=== PATIENT | male | born 1950 | race Caucasian/White ===

== ENCOUNTER → 2017-04-12 | Outpatient (CLI) | payer OTHER | END | disposition home or self-care (01) | LOC: SHCH 11:30 | PROVIDERS: ATTEND Internal Medicine Cardiovascular Disease | DX: I51.7 Cardiomegaly (principal); I35.0 Nonrheumatic aortic (valve) stenosis | CPT/HCPCS: 93306 ==

== ENCOUNTER 2018-02-14 15:30 | Inpatient (IN) | payer OTHER ==
[~2018-02-14] VITALS: Ht 176.5 cm; Wt 83.4 kg
[2018-02-14 14:45] VITALS: BP 142/83
[2018-02-14] MEDS ORDERED: LISI30TA4 PO (16:02)
[2018-02-14] MEDS ORDERED: TRAZ-187 PO (16:02)
[2018-02-14] MEDS ORDERED: SIMV80TA7 PO (16:02)
[2018-02-14] MEDS ORDERED: TYL3 PO (16:02)
[2018-02-15] VITALS (25 sets, daily range): BP systolic 91–139; BP diastolic 57–91
[2018-02-15] MEDS: CEFAZOLIN SODIUM 1 GM VIAL IVP SCH ×4 (06:00→23:16)
[2018-02-15] MEDS ORDERED: LACTATED RINGERS 1000ML 1,000 ML IV ONE (06:34)
[2018-02-15] MEDS ORDERED: LIDOCAINE PF 2% 5ML ABBOJECT ONE (07:13)
[2018-02-15] MEDS ORDERED: SUCCINYLCHOLINE 200MG/10ML SYR ONE (07:13)
[2018-02-15] MEDS ORDERED: ONDANSETRON HCL 4 MG/2 ML VIAL ONE (07:13)
[2018-02-15] MEDS ORDERED: DEXAMETHASONE SOD PHOSPHATE 10MG/ML 1ML VIAL ONE (07:14)
[2018-02-15] MEDS ORDERED: PROPOFOL 10 MG/ML 20ML VIAL IV ONE ×2 (07:14→10:25)
[2018-02-15] MEDS ORDERED: MIDAZOLAM HCL 1 MG/ML 2ML VIAL ONE (07:14)
[2018-02-15] MEDS ORDERED: GLYCOPYRROLATE 1 MG/5 ML SYRINGE ONE (07:14)
[2018-02-15] MEDS ORDERED: NEOSTIGMINE 5MG/5ML SYR IV ONE (07:14)
[2018-02-15] MEDS ORDERED: LEVO25TA54 PO (07:14)
[2018-02-15] MEDS ORDERED: ROCURONIUM 10MG/1ML SYR 10 MG/ML ML ONE (07:15)
[2018-02-15] MEDS ORDERED: FENTANYL CITRATE PF 50 MCG/1 ML 2ML VIAL ONE (07:15)
[2018-02-15] MEDS ORDERED: BUPIVACAINE/EPI/PF 0.25% 30ML VIAL IJ ONE (07:46)
[2018-02-15] MEDS ORDERED: CEFAZOLIN SODIUM 1 GM VIAL ONE (07:46)
[2018-02-15] MEDS ORDERED: TRANEXAMIC ACID 1000MG/10ML IV ONE (07:46)
[2018-02-15] MEDS ORDERED: EPHEDRINE SULFATE 50 MG/ML AMPULE ONE (08:34)
[2018-02-15] MEDS ORDERED: FENTANYL CITRATE PF 50 MCG/1 ML 5ML AMP IV ONE (09:24)
[2018-02-15] MEDS ORDERED: FERROUS FUMARATE 324 MG TABLET PO PRN (10:30)
[2018-02-15] MEDS ORDERED: TRAMADOL HCL 50 MG TABLET PO PRN (10:30)
[2018-02-15] MEDS ORDERED: POTASSIUM CHLORIDE 10% ELIXIR 20 MEQ/15 ML UDCUP PO PRN (10:30)
[2018-02-15] MEDS ORDERED: DiphenhydrAMINE HCL 50 MG/ML VIAL IVP PRN (10:30)
[2018-02-15] MEDS ORDERED: OXYCODONE HCL 5 MG TAB PO PRN (10:30)
[2018-02-15] MEDS ORDERED: POTASSIUM CHLORIDE 20MEQ/100ML 100 ML IV PRN (10:30)
[2018-02-15] MEDS ORDERED: POTASSIUM CHLORIDE 20 MEQ ERTAB PO PRN (10:30)
[2018-02-15] MEDS ORDERED: LIDOCAINE HCL-MPF 1% 2ML VIAL IVP PRN (10:30)
[2018-02-15] MEDS ORDERED: CALCIUM CARBONATE 500 MG TABLET PO PRN (10:30)
[2018-02-15] MEDS: ACETAMINOPHEN EXTRA STRENGTH 500 MG TABLET PO SCH ×2 (10:30→18:49)
[2018-02-15] MEDS ORDERED: ONDANSETRON HCL 4 MG/2 ML VIAL IVP PRN (10:30)
[2018-02-15] MEDS ORDERED: TRAZODONE HCL 100 MG TABLET PO SCH (12:15)
[2018-02-15] MEDS ORDERED: TRAZODONE HCL 100 MG TABLET PO PRN (13:13)
[2018-02-15] MEDS ORDERED: ACETAMINOPHEN-CODEINE 300/30MG TAB PO PRN (13:15)
[2018-02-15] MEDS: SODIUM CHLORIDE 0.9% 1000ML 1,000 ML IV SCH ×2 (14:47→22:02)
[2018-02-15] MEDS: PREGABALIN 25 MG CAP PO SCH (20:07)
[2018-02-15] MEDS: OXYCODONE HCL 5 MG TAB PO PRN (20:07)
[2018-02-15] MEDS: CELECOXIB 200 MG CAP PO SCH (20:07)
[2018-02-15] MEDS: ASPIRIN 325 MG TABLET PO SCH (20:07)
[2018-02-15] MEDS: FAMOTIDINE 20MG TAB 20 MG TAB PO SCH (20:08)
[2018-02-15] MEDS: SIMVASTATIN 20 MG TABLET PO SCH (20:08)
[2018-02-15] MEDS: KETOROLAC TROMETHAMINE 15MG/ML IV PRN (23:21)
[2018-02-16] MEDS: SODIUM CHLORIDE 0.9% 1000ML 1,000 ML IV SCH (03:08)
[2018-02-16] MEDS: ACETAMINOPHEN EXTRA STRENGTH 500 MG TABLET PO SCH ×3 (03:08→18:09)
[2018-02-16 04:01] LABS: HEMATOCRIT 34.1 % (42-54); MEAN CORPUSCULAR HEMOGLOBIN 33.8 pg (27.0-33.0); MEAN CORPUSCULAR HGB CONC 34.6 g/dL (32.0-36.0); MEAN CORPUSCULAR VOLUME 97.8 fL (79-99); PLATELET COUNT (AUTO) 188 K/uL (130-400); RED BLOOD CELL COUNT(AUTO) 3.49 MIL/uL (4.50-6.20); RED CELL DISTRIBUTION WIDTH 13.6 % (11.0-15.5); WHITE BLOOD COUNT (AUTO) 9.7 K/uL (4.8-10.8)
[2018-02-16 04:22] LABS: CREATININE 1.4 mg/dL (0.5-1.5); POTASSIUM 4.3 mmol/L (3.5-5.1)
[2018-02-16 04:30] VITALS: BP 130/78
[2018-02-16] MEDS: LEVOTHYROXINE 25 MCG TABLET PO SCH (05:52)
[2018-02-16 07:36] VITALS: BP 124/74
[2018-02-16] MEDS: POLYETHYLENE GLYCOL 3350 17 GM POWD.PACK PO SCH (09:00)
[2018-02-16] MEDS: FAMOTIDINE 20MG TAB 20 MG TAB PO SCH ×2 (09:00→19:38)
[2018-02-16] MEDS: ASPIRIN 325 MG TABLET PO SCH ×2 (09:00→19:38)
[2018-02-16] MEDS: TAMSULOSIN HCL 0.4 MG CAP.ER.24H PO SCH (09:00)
[2018-02-16] MEDS: CELECOXIB 200 MG CAP PO SCH ×2 (09:00→19:38)
[2018-02-16] MEDS: PREGABALIN 25 MG CAP PO SCH ×2 (09:01→19:38)
[2018-02-16] MEDS: LISINOPRIL 20 MG TABLET PO SCH (09:01)
[2018-02-16] MEDS: OXYCODONE HCL 5 MG TAB PO PRN ×2 (10:25→15:50)
[2018-02-16 11:30] VITALS: BP 98/59
[2018-02-16 15:52] VITALS: BP 109/56
[2018-02-16] MEDS: SIMVASTATIN 20 MG TABLET PO SCH (19:38)
[2018-02-16 20:13] VITALS: BP 117/74
[2018-02-16 23:47] VITALS: BP 102/63
[2018-02-16] MEDS: KETOROLAC TROMETHAMINE 15MG/ML IV PRN (23:49)
[2018-02-17] MEDS: ACETAMINOPHEN EXTRA STRENGTH 500 MG TABLET PO SCH ×3 (01:11→18:11)
[2018-02-17 04:05] VITALS: BP 103/59
[2018-02-17] MEDS: LEVOTHYROXINE 25 MCG TABLET PO SCH (05:51)
[2018-02-17 08:14] VITALS: BP 90/56
[2018-02-17] MEDS: POLYETHYLENE GLYCOL 3350 17 GM POWD.PACK PO SCH (08:54)
[2018-02-17] MEDS: KETOROLAC TROMETHAMINE 15MG/ML IV PRN (08:54)
[2018-02-17] MEDS: TAMSULOSIN HCL 0.4 MG CAP.ER.24H PO SCH (08:56)
[2018-02-17] MEDS: FAMOTIDINE 20MG TAB 20 MG TAB PO SCH (08:56)
[2018-02-17] MEDS: ASPIRIN 325 MG TABLET PO SCH (08:56)
[2018-02-17] MEDS: PREGABALIN 25 MG CAP PO SCH (08:56)
[2018-02-17] MEDS: CELECOXIB 200 MG CAP PO SCH (08:56)
[2018-02-17] MEDS: LISINOPRIL 20 MG TABLET PO SCH (08:58)
[2018-02-17 11:41] VITALS: BP 108/64
[2018-02-17] MEDS ORDERED: HYDR-4457 PO (16:08)
[2018-02-17] MEDS ORDERED: ASPI-1012 PO (16:08)
[2018-02-18] MEDS ORDERED: BISACODYL 10 MG SUPP.RECT RC PRN (10:30)
== END 2018-02-17 18:35 | disposition home health service (06) | DRG 470 ==
LOC: EDSTATUS 15:30 → DAHIP 02-15 06:20 → 4AH 02-15 11:30
PROVIDERS: ADMIT Orthopaedic Surgery; ATTEND Orthopaedic Surgery
PROC: 0SRC0J9 Replacement of Right Knee Joint with Synthetic Substitute, Cemented, Open Approach (ICD-10-PCS; principal; 2018-02-15 09:10)
DX: M17.11 Unilateral primary osteoarthritis, right knee (principal); G89.29 Other chronic pain; I10 Essential (primary) hypertension; E78.5 Hyperlipidemia, unspecified; Z82.49 Family history of ischemic heart disease and other diseases of the circulatory system; Z79.899 Other long term (current) drug therapy; Z90.89 Acquired absence of other organs; Z98.42 Cataract extraction status, left eye; Z98.41 Cataract extraction status, right eye
CPT/HCPCS: 36415; 80048; 85027; 88305; 88311; A4218; J0330; J0690; J1100; J1885; J2001; J2250; J2405; J2704; J2710; J3010; J3490; J7030; J7120

== ENCOUNTER 2024-08-13 05:43 | Observation (INO) | payer OTHER ==
[2024-08-08 12:04] VITALS: BP 154/79; PULSE 60; RESP 18; TEMP 98.6
--- NOTE | 2024-08-08 12:23 | NUR ---
PREOP MAGDALENA RT INSTRUCTED ON INCENTIVE SPIROMETRY
[2024-08-13] VITALS (26 sets, daily range): BP systolic 76–153; BP diastolic 44–77; PULSE 50–72; RESP 14–20; TEMP 97.3–98.9; O2SAT 98
[~2024-08-13] VITALS: Ht 180.3 cm; Wt 77.3 kg
[~2024-08-13 05:43] MED LIST: SIMV80TA91 PO; TRAZ-187 PO
[2024-08-13] MEDS ORDERED: LACTATED RINGERS 1000ML IV SCH (06:00)
[2024-08-13] MEDS ORDERED: ketOROlac 30MG VIAL (30MG/ML) ONE (06:21)
[2024-08-13] MEDS ORDERED: ROPivacaine 0.5% 5MG/ML 30ML ONE ×2 (06:22→06:58)
[2024-08-13] MEDS: ceFAZolin SODIUM 2 GM VIAL ONE (06:34)
[2024-08-13] MEDS: LACTATED RINGERS 1000ML 1,000 ML IV ONE (06:35)
[2024-08-13] MEDS: 0.9%NACL 1000ML 1,000 ML IV SCH ×2 (06:36→07:30)
[2024-08-13] MEDS ORDERED: dexmedeTOMIDine HCL 200 MCG/2 ML VIAL IV ONE (06:58)
[2024-08-13] MEDS ORDERED: 0.9%NACL 10ML VIAL ONE ×3 (07:00)
[2024-08-13] MEDS ORDERED: phenylEPHRINE HCL 10 MG/ML 1ML VIAL IV ONE (07:01)
[2024-08-13] MEDS ORDERED: LIDOCAINE PF 100MG/5ML (2%) SYRINGE 5ML ONE (07:01)
[2024-08-13] MEDS ORDERED: proPOFol 10 MG/ML 20ML VIAL IV ONE (07:02)
[2024-08-13] MEDS ORDERED: MIDAZOLAM HCL 1 MG/ML 2ML VIAL ONE (07:02)
[2024-08-13] MEDS ORDERED: FENTanyl CITRate PF 50 MCG/1 ML 2ML VIAL ONE ×2 (07:02→09:38)
[2024-08-13] MEDS ORDERED: rocuRONium bROMide 10MG/1ML 5ML VL ONE (07:03)
[2024-08-13] MEDS ORDERED: FERROUS FUMARATE 324 MG TABLET PO PRN (07:30)
[2024-08-13] MEDS ORDERED: trAZOdone HCL 100 MG TABLET PO SCH (07:30)
[2024-08-13] MEDS ORDERED: CYCLOBENZAPRINE HCL 10 MG TABLET PO PRN (07:30)
[2024-08-13] MEDS ORDERED: HYDROcodone/APAP 5/325 1 TAB TABLET PO PRN ×2 (07:30→08:00)
[2024-08-13] MEDS ORDERED: CALCIUM CARB 500MG PO PRN (07:30)
[2024-08-13] MEDS ORDERED: PoTASSium chl 10% ELIXIR 20MEQ 20 MEQ/15 ML UDCUP PO PRN (07:30)
[2024-08-13] MEDS ORDERED: PoTASSium chloRIDE 20MEQ/100ML 100 ML IV PRN (07:30)
[2024-08-13] MEDS ORDERED: ondanSETRON 4MG INJ IVP PRN (07:30)
[2024-08-13] MEDS ORDERED: traMADol HCL 50 MG TABLET PO PRN (07:30)
[2024-08-13] MEDS ORDERED: PoTASSium chloRIDE 20MEQ ER 20 MEQ ERTAB PO PRN (07:30)
--- NOTE | 2024-08-13 07:32 | DS ---
Discharge Summary Hospital Course Summary: The patient was admitted to the hospital postoperatively on 08/13/2024 after undergoing left total knee arthroplasty. They did well with routine postoperative pain control. They worked well with physical therapy. They developed some acute blood loss anemia but remained asymptomatic. The hospital course was otherwise uncomplicated. They were subsequently able to be discharged on postoperative day [] once discharge arrangements were made with home health physical therapy. Full Stack Java Developer(s): None Procedure(s): Left total knee arthroplasty, 08/13/2024 Assessment/Plan: ASSESSMENT: Status post left total knee arthroplasty PLAN: See discharge instructions Discharge Instructions: Begin working with home health physical therapy. Dressing may be removed 08/15/2024 and left open to air. Showers ok allowing soap and water to run over the wound. Pat dry. Do not submerge wound in tub/pool. Do not apply ointments. Do not apply Betadine. Do not apply peroxide. Ice packs to decrease pain/swelling. Prescriptions have been sent to the pharmacy: *Dana 5/325mg 1-2 tab every 6 hours as needed for severe pain. (please call for refills) Cyclobenzaprine 5mg 1 tab every 8 hours as needed for muscle spasm pain. Gabapentin 100mg 1 tab every 8 hours (may discontinue if drowsy). Colace 100mg 1 tab orally twice a day as needed for constipation. Aspirin 325mg twice a day for 30 days to prevent blood clots. Call for a follow-up appointment in 2-3 weeks at [facility]. Home Medications: Reported Medications Trazodone HCl (Trazodone HCl) 100 Mg Tablet, 100 MG PO HSPRN, TAB 02/14/18 Simvastatin (Simvastatin) 80 Mg Tablet, 40 MG PO HS, TAB 02/14/18 Discontinued Reported Medications Levothyroxine Sodium (Levothyroxine Sodium) 25 Mcg Tablet, 25 MCG PO DAILY, TAB 02/15/18 Lisinopril (Lisinopril) 30 Mg Tablet, 30 MG PO DAILY, TAB 02/14/18 Discontinued Scripts Hydrocodone/Acetaminophen (Dana 5-325 Tablet) 1 Each Tablet, 1-2 EACH PO Q6HPRN PRN for PAIN, #90 TAB Prov:MICHELLE DE PAZ MD 02/17/18 Aspirin (ASPIRIN) 325 Mg Tablet, 325 MG PO DAILY, #30 TAB Prov:MICHELLE DE PAZ MD 02/17/18 ARLEEN MEYER MD August 13, 2024 07:32
[2024-08-13] MEDS ORDERED: ePHEDrine SULFate 50 MG/ML AMPULE ONE (07:40)
[2024-08-13] MEDS: TRANEXAMIC ACID 1000MG/10ML ONE (07:48)
[2024-08-13] MEDS: ketOROlac 30MG VIAL (30MG/ML) IJ ONE (08:21)
[2024-08-13] MEDS ORDERED: dexaMETHasone SOD PHOSPHATE 10MG/ML 1ML VIAL ONE (08:25)
[2024-08-13] MEDS ORDERED: ondanSETRON 4MG INJ ONE (08:25)
[2024-08-13] MEDS ORDERED: NEOSTIGMINE METHYLSULFATE 1MG/ML IV ONE (08:42)
[2024-08-13] MEDS ORDERED: GLYCOPYRROLATE 0.2 MG/ML 5 ML VIAL ONE (08:42)
[2024-08-13] MEDS: polyETHYLene GLYCol 3350 17 GM POWD.PACK PO SCH (09:00)
[2024-08-13] MEDS: GABApentin 100 MG CAPSULE PO SCH (09:00)
[2024-08-13] MEDS: doCUSate SODIUM 100 MG CAP PO SCH (09:00)
[2024-08-13] MEDS: TRANEXAMIC ACID 1000MG/10ML IV ONE (09:18)
--- NOTE | 2024-08-13 09:23 | OP ---
Operative Note: DATE OF PROCEDURE: 08/13/24 PREOPERATIVE DIAGNOSIS: Left knee osteoarthritis. POSTOPERATIVE DIAGNOSIS: Left knee osteoarthritis. PROCEDURE PERFORMED: Left knee total knee arthroplasty. SURGEON: Dyan Whitten MD CHILD CARE ASSOCIATE: Wagner Paloimno and Destiny Alejandro. ANESTHESIA: General with adductor canal block. ANESTHESIA: ZAHIRA Vaughan. ESTIMATED BLOOD LOSS: 50cc. COMPLICATIONS: None. DRAINS: None. SPECIMENS REMOVED: resected bone. Not sent to pathology. IMPLANTS: Vaughan [employer] Nephew Journey II BCS size 6 Oxinium femur, size 5 tibial base plate, 35 mm patella, 15 mm polyethylene STATEMENT OF MEDICAL NECESSITY: The patient is a 74-year-old male who suffers from left knee osteoarthritis failing conservative management. After discussion of the risks, benefits, and alternatives with the patient, they voluntarily agreed to undergo the aforementioned procedure. DESCRIPTION OF PROCEDURE: Patient was properly identified in the preoperative holding area. Surgical site marking was verified and surgery consent reviewed. The patient was then taken to the operating room and placed in supine position on the OR table. After induction of general anesthesia, preoperative antibiotics were given, all bony prominences were well-padded, and a well padded tourniquet was applied but not inflated at this time. The left lower extremity was then prepped and draped in usual sterile fashion. Surgical time out was done verifying correct surgery, side, site, and location to be performed. We then began the procedure by exsanguinating the limb using an Esmarch and inflating the tourniquet to 350 mmHg. At this point, we made an anterior midline incision using a 10 blade, coming down sharply the level of the fascia. Skin flaps were elevated medially and laterally. We then obtained a clean 10 blade and performed a standard medial parapatellar arthrotomy. We excised the infrapatellar fat pad. We performed our soft tissue releases off of the tibia. We transected the ACL and removed the anterior portion of the medial & lateral meniscus. We then brought the knee into hyperflexion with the patella everted. We used our entry reamer to enter the femoral canal. We then placed our intramedullary cutting guide for our distal femoral cutting block. We then performed our distal femoral osteotomy ensuring appropriate rotation and removed the bony wafer. We then removed these pins and block and then used jig 2 to size the distal femur with the after mentioned size found. We then placed our 5-in-1 cutting block in 4 degrees of external rotation and took our 5 cuts ensuring to protect the patellar tendon and the collateral ligaments. We then removed the cutting block and our bony fragments using a curved osteotome. We then placed our PCL retractor subluxating the tibia anteriorly. Using an extra medullary tibial cutting guide, we hung the block for our proximal tibial cut taking 2 mm off the more diseased portion. Prior to pinning this block in place, we ensured appropriate varus/valgus alignment and posterior slope similar to the [place] slope of the patient's knee. We then performed our proximal tibial osteotomy and removed the bony wafer using Bovie electrocautery to release any remaining soft tissue attachments. We then used our tibial sizing paddle and checked once more for varus & valgus alignment and found this to be cut in varus. We then placed the cutting block back on the anterior pins and used the drop alley to align this in a more neutral fashion. We then cross pinned it and we cutter tibial surface. We then checked once more for varus and valgus alignment and found this or appropriate. At this point, we pinned our tibial paddle in place. We then removed the PCL retractor and subluxated the tibia posteriorly while we placed our femoral trial component. We then finished preparing the notch with the reamer and box chisel. The notch portion of the trial femoral component was then placed. A posterior stabilized polyethylene, size 9 trial was placed. This was immediately increased up to a size 13 due to laxity with varus and valgus stressing. The knee was then taken through range of motion and found to have stable full range of motion. We then placed a bump under the ankle and everted the patella to perform our freehand cut of the undersurface the patella. We then sized our patella and reamed to the lug holes for this. We placed our trial patellar component and begin to take the knee through range of motion. The patella had lateral tracking so we performed a lateral release. At this point we began removing our trial components and punched the tibial keel prior to removing our tibial trial component. Final components were opened and cement was mixed on the back table while we injected local cocktail in the posterior capsule. We then thoroughly irrigated out the bone and dried the bony surfaces. We cemented our tibial component in place ensuring to remove excess cement and placed our trial polyethylene. We then cemented our femoral component in place once again taking time to ensure excess cement was removed leg was brought into full extension to help squeeze the excess cement from around the femoral component. We then brought the knee back in a flexion to remove this portion of the cement at this point we placed the ankle in a bump thoroughly irrigated off the patellar component and cemented our patellar component in standard fashion again removing excess cement. While we waited for the cement to cure, we thoroughly irrigated out the wound with normal saline. Once our cement had cured, we took the knee through a range of motion and found full and stable range of motion. We then elected to use the size 15 polyethylene and removed our trial polyethylene. We impacted our final polyethylene component in place in standard fashion and took the knee through a range of motion check once more. This was satisfactory so we began to repair the arthrotomy using #1 Vicryl in interrupted [id number] fashion. Subcutaneous tissue was repaired using 2-0 Vicryl. Running subcuticular 3-0 Monocryl stitch with Dermabond placed over this for the skin. We then applied a foam barrier dressing and a pressure dressing consisting of 4 x 4's fluffs and an Dylan wrap. The tourniquet was then deflated. Patient was awakened from ane sthesia, and they were taken to the recovery room in stable condition. DYAN WHITTEN MD August 13, 2024 09:23
[2024-08-13] MEDS: ketOROlac 15MG/ML VIAL (15MG/ML) IV SCH (09:53)
[2024-08-13] MEDS: GLYCOPYRROLATE 0.2 MG/ML 5 ML VIAL ONE (10:02)
[2024-08-13] MEDS: ketOROlac 15MG/ML VIAL (15MG/ML) ONE (10:21)
--- NOTE | 2024-08-13 10:24 | HMCIMG ---
Exam Type: KNEE/PATELLA 1-2VWS LT Clinical Information: S/P LEFT TKA SURGERY Comparison: None Findings: Routine views of the knee are without evidence of fracture, dislocation, arthritic, or inflammatory change. There is status post knee replacement with adequate visualization and alignment of bony and hardware elements. No complications are seen. There are vascular calcifications. The joint space is well maintained and there is no effusion. IMPRESSION: Status post knee replacement.
--- NOTE | 2024-08-13 13:00 | NUR ---
Order received and patient seen and evaluated. Patient plans on going home, lives alone however has neighbors that will assist as needed. Patient had previous RTKA 7 yrs ago and knows what to expect. Patient has 4 steps to enter home, he will be taught how to go up them prior to DC. Patient reports he has a walker at home as well.. Educated patient to request pain meds with breakfast and lunch so pain will be better controlled for PT sessions. Patient voiced understanding. Addendum: 08/13/24 at 1356 by BARBI HOLLOWAY PT Amended: Links added.
[2024-08-13] MEDS: ceFAZolin SODIUM 2 GM VIAL IVP SCH (13:01)
--- NOTE | 2024-08-13 15:57 | NUR ---
[facility] CM MET WITH PT THIS AFTERNOON, INITIAL ASSESSMENT DONE. PATIENT IS INDEPENDENT PRIOR TO SURGERY, LIVES AT HOME ALONE. PATIENT HAS A WORKING STANDARD WALKER AT HOME. DENIES ANY OTHER EQUIPMENT/SERVICES. FEELS SAFE TO GO BACK HOME, STILL DRIVE, PT VERBALIZED HE HAS FRIENDS AND NEIGHBORS THAT WILL BE ABLE TO ASSIST HIM IF HE NEEDS ANYTHING AT HOME. DISCUSSED MD RECOMMENDATIONS FOR HOME W/HOME HEALTH FOR PT, PT AGREEABLE, CONSENT SIGNED JUDY FOR [place] ASSIGNED HOME HEALTH. [facility] HOME W/HH ONCE APPROVED. CM TO CONTINUE TO FOLLOW UP. Addendum: 08/13/24 at 1600 by BLAINE FRANCO LVN Amended: Links added.
--- NOTE | 2024-08-13 17:00 | NUR ---
ORTHO COORDINATOR: TEACHING REGARDING DVT AND PNEUMONIA PREVENTION, PAIN EXPECTATIONS AND PAIN MANAGEMENT. PATIENT IN BED, JUST RETURNED FROM SITTING IN CHAIR. B SCD SLEEVES IN PLACE AND FUNCTIONING. INCENTIVE SPIROMETER AT BEDSIDE. PATIENT RETURN DEMONSTRATED USE OF INCENTIVE SPIROMETER AND FOOT FLEXION AND EXTENSION EXERCISES. RATIONALE FOR PERFORMING PROVIDED. INSTRUCTED PATIENT PAIN MEDICATION IS ON REQUEST. ENCOURAGED HIM TO SET AN ALARM FOR EVERY FOUR HOURS AND PERFORM A PAIN CHECK USING THE NUMERIC PAIN SCALE AND REQUEST APPROPRIATE MEDICATIONS. PATIENT VERBALIZED UNDERSTANDING TO ALL INSTRUCTIONS. PATIENT HAD OTHER KNEE DONE SEVERAL YEARS AGO, PAIN EXPECTATIONS REALISTIC. NO ADDITIONAL QUESTIONS/CONCERNS. Addendum: 08/13/24 at 1740 by INGRIS GAGE RN RN EXPECTATIONS SET TO SHOWER TOMORROW. PATIENT VERBALIZED UNDERSTANDING.
--- NOTE | 2024-08-13 19:00 | NUR ---
SHIFT NOTE Patient status post Left Total Knee performed by Dr. Whitten. Pain management regiment is adequate for patient. Patient has been out of bed to chair and has ambulated with physical therapy. Incentive spirometer with [address]. Patient will have bath/shower tomorrow. Ancef second dose administered on unit at approximately 1510.
[2024-08-13] MEDS: trAZOdone HCL 100 MG TABLET PO SCH (20:48)
[2024-08-13] MEDS: simVASTatin 20 MG TABLET PO SCH (20:48)
[2024-08-14] VITALS: BP 128/63; PULSE 82; RESP 18; TEMP 97.7
[2024-08-14 04:00] VITALS: BP 133/71; PULSE 74; RESP 18; TEMP 97.8
[2024-08-14 05:15] LABS: HEMATOCRIT 32.3 % (42-54); MEAN CORPUSCULAR HEMOGLOBIN 31.4 pg (27.0-33.0); MEAN CORPUSCULAR HGB CONC 33.4 g/dL (32.0-36.0); MEAN CORPUSCULAR VOLUME 93.9 fL (79-99); RED BLOOD CELL COUNT(AUTO) 3.44 MIL/uL (4.50-6.20); RED CELL DISTRIBUTION WIDTH 13.7 % (11.0-15.5); WHITE BLOOD COUNT (AUTO) 10.9 K/uL (4.8-10.8)
[2024-08-14 05:28] LABS: CREATININE 1.6 mg/dL (0.5-1.3); POTASSIUM 5.3 mmol/L (3.5-5.1)
[2024-08-14] MEDS ORDERED: ketOROlac 15MG/ML VIAL (15MG/ML) IV PRN (07:30)
[2024-08-14 08:00] VITALS: O2SAT 97
--- NOTE | 2024-08-14 08:02 | PN ---
Ortho postop day one. This morning the patient is awake alert and oriented. Reporting little pain. He is seated in a chair resting his operative extremity on a footstool and alternating. Currently has ice present to operative site. The dressing is intact. Gastrocnemius a soft and nontender. Negative Homans. . Vital signs have been stable. He is afebrile. Laboratory results reviewed. Noted to have a drop in hemoglobin and hematocrit as expected after TKA. Patient is asymptomatic and we will address per protocol. Also noted to have an increase in potassium 5.3 and we will address per protocol. Voiding on his own without difficulty. Incentive spirometry with adequate returned demonstration. Operative findings discussed with the patient. Ambulated yesterday about 75 ft and is currently able to ambulate in the confines of his room with a walker. Patient states he feels that he is able to ambulate without walker but he has been instructed to not do so for safety. Anticipated discharge goal is home health/PT. Assessment: Status post left total knee arthroplasty. Hyperkalemia. Asymptomatic acute postoperative blood loss anemia. Plan: Continue with Dr. Whitten's TKA protocol and discharge planning . Hyperkalemia addressed per protocol. Asymptomatic acute postoperative blood loss anemia addressed per protocol as necessary Vitals/Labs Vital Signs Date Time Temp Pulse Resp B/P (MAP) Pulse Ox O2 Delivery O2 Flow Rate FiO2 08/14/24 04:00 97.9 74 18 133/71 99 Room Air 08/13/24 20:00 0 21 Laboratory Tests 08/14/24 04:30 Medications Current Medications Sodium Chloride 1,000 ml @ 0 mls/hr Q0M IV; Start 08/13/24 at 06:00; Stop 09/12/24 at 05:59 Cefazolin Sodium 2 gm STK-MED ONCE .ROUTE Last administered on 08/13/24at 07:47; Start 08/13/24 at 05:53; Stop 08/13/24 at 05:54; Status DC Lactated Ringer's 1,000 ml @ As Directed STK-MED ONCE IV Last administered on 08/13/24at 06:35; Start 08/13/24 at 05:53; Stop 08/13/24 at 05:54; Status DC Lactated Ringer's 1,000 ml PREOP IV; Start 08/13/24 at 06:00; Stop 08/14/24 at 05:59; Status DC Tranexamic Acid 1,000 mg STK-MED ONCE .ROUTE Last administered on 08/13/24at 07:48; Start 08/13/24 at 06:21; Stop 08/13/24 at 06:22; Status DC Ketorolac Tromethamine 30 mg STK-MED ONCE .ROUTE; Start 08/13/24 at 06:21; Stop 08/13/24 at 06:22; Status DC Ropivacaine 150 mg STK-MED ONCE .ROUTE; Start 08/13/24 at 06:22; Stop 08/13/24 at 06:22; Status DC Dexmedetomidine HCl 200 mcg STK-MED ONCE IV; Start 08/13/24 at 06:58; Stop 08/13/24 at 06:58; Status DC Ropivacaine 150 mg STK-MED ONCE .ROUTE; Start 08/13/24 at 06:58; Stop 08/13/24 at 06:59; Status DC Sodium Chloride 10 ml STK-MED ONCE .ROUTE; Start 08/13/24 at 07:00; Stop 08/13/24 at 07:00; Status DC Sodium Chloride 10 ml STK-MED ONCE .ROUTE; Start 08/13/24 at 07:00; Stop 08/13/24 at 07:01; Status DC Sodium Chloride 10 ml STK-MED ONCE .ROUTE; Start 08/13/24 at 07:00; Stop 08/13/24 at 07:01; Status DC Lidocaine HCl 100 mg STK-MED ONCE .ROUTE; Start 08/13/24 at 07:01; Stop 08/13/24 at 07:01; Status DC Phenylephrine HCl 10 mg STK-MED ONCE IV; Start 08/13/24 at 07:01; Stop 08/13/24 at 07:01; Status DC Propofol 200 mg STK-MED ONCE IV; Start 08/13/24 at 07:02; Stop 08/13/24 at 07:02; Status DC Midazolam HCl 2 mg STK-MED ONCE .ROUTE; Start 08/13/24 at 07:02; Stop 08/13/24 at 07:02; Status DC Fentanyl Citrate 100 mcg STK-MED ONCE .ROUTE; Start 08/13/24 at 07:02; Stop 08/13/24 at 07:02; Status DC Rocuronium [place] 50 mg STK-MED ONCE .ROUTE; Start 08/13/24 at 07:03; Stop 08/13/24 at 07:03; Status DC Sodium Chloride 1,000 ml @ 100 mls/hr Q10H IV; Start 08/13/24 at 07:30; Stop 08/14/24 at 07:29; Status DC Polyethylene Glycol 17 gm DAILY PO; Start 08/13/24 at 09:00; Stop 09/12/24 at 08:59 Bisacodyl 10 mg DAILY PRN RC; Start 08/16/24 at 07:30; Stop 09/15/24 at 07:29 Ketorolac Tromethamine 15 mg Q6H PRN IV; Start 08/14/24 at 07:30; Stop 08/19/24 at 07:29 Ferrous Fumarate 324 mg DAILY PRN PO; Start 08/13/24 at 07:30; Stop 09/12/24 at 07:29 Ondansetron HCl 4 mg Q6H PRN IVP; Start 08/13/24 at 07:30; Stop 09/12/24 at 07:29 Calcium Carbonate 500 mg Q12H PRN PO; Start 08/13/24 at 07:30; Stop 09/12/24 at 07:29 Cefazolin Sodium 2 gm Q8H IVP Last administered on 08/13/24at 20:48; Start 08/13/24 at 12:30; Stop 08/13/24 at 20:31; Status DC Cyclobenzaprine HCl 5 mg Q8H PRN PO; Start 08/13/24 at 07:30; Stop 09/12/24 at 07:29 Gabapentin 100 mg TID PO Last administered on 08/13/24at 20:48; Start 08/13/24 at 09:00; Stop 09/12/24 at 08:59 Aspirin 325 mg DAILY PO; Start 08/14/24 at 09:00; Stop 09/13/24 at 08:59 Ketorolac Tromethamine 15 mg Q8H IV Last administered on 08/13/24at 23:54; Start 08/13/24 at 07:30; Stop 08/13/24 at 23:31; Status DC Docusate Sodium 100 mg BID PO Last administered on 08/13/24at 20:48; Start 08/13/24 at 09:00; Stop 09/12/24 at 08:59 Potassium Chloride 100 ml @ 100 mls/hr AD PRN IV; Start 08/13/24 at 07:30; Stop 09/12/24 at 07:29 Potassium Chloride 20 meq AD PRN PO; Start 08/13/24 at 07:30; Stop 09/12/24 at 07:29 Potassium Chloride 20 meq AD PRN PO; Start 08/13/24 at 07:30; Stop 09/12/24 at 07:29 Tramadol HCl 50 mg Q6H PRN PO; Start 08/13/24 at 07:30; Stop 08/18/24 at 07:29 Acetaminophen/ Hydrocodone Bitart Q4H PRN PO; Start 08/13/24 at 07:30; Stop 08/13/24 at 07:41; Status DC Trazodone HCl 100 mg HSPRN PO; Start 08/13/24 at 07:30; Stop 08/13/24 at 07:42; Status DC Simvastatin 40 mg HS PO Last administered on 08/13/24at 20:48; Start 08/13/24 at 21:00; Stop 09/12/24 at 20:59 Ephedrine Sulfate 50 mg STK-MED ONCE .ROUTE; Start 08/13/24 at 07:40; Stop 08/13/24 at 07:40; Status DC Trazodone HCl 100 mg HS PO Last administered on 08/13/24at 20:48; Start 08/13/24 at 21:00; Stop 09/12/24 at 07:29 Acetaminophen/ Hydrocodone Bitart 1 tab Q4H PRN PO; Start 08/13/24 at 08:00; Stop 08/18/24 at 07:59 Acetaminophen/ Hydrocodone Bitart 2 tab Q4H PRN PO; Start 08/13/24 at 08:00; Stop 08/18/24 at 07:59 Ketorolac Tromethamine 30 mg STK-MED ONCE IJ Last administered on 08/13/24at 08:21; Start 08/13/24 at 08:21; Stop 08/13/24 at 08:22; Status DC Ropivacaine 150 mg STK-MED ONCE IJ Last administered on 08/13/24at 08:21; Start 08/13/24 at 08:21; Stop 08/13/24 at 08:22; Status DC Ondansetron HCl 4 mg STK-MED ONCE .ROUTE; Start 08/13/24 at 08:25; Stop 08/13/24 at 08:25; Status DC Dexamethasone Sodium Phosphate 10 mg STK-MED ONCE .ROUTE; Start 08/13/24 at 08:25; Stop 08/13/24 at 08:25; Status DC Glycopyrrolate 1 mg STK-MED ONCE .ROUTE; Start 08/13/24 at 08:42; Stop 08/13/24 at 08:42; Status DC Neostigmine Methylsulfate 10 mg STK-MED ONCE IV; Start 08/13/24 at 08:42; Stop 08/13/24 at 08:42; Status DC Tranexamic Acid 1,000 mg STK-MED ONCE IV Last administered on 08/13/24at 09:18; Start 08/13/24 at 09:18; Stop 08/13/24 at 09:20; Status DC Fentanyl Citrate 100 mcg STK-MED ONCE .ROUTE; Start 08/13/24 at 09:38; Stop 08/13/24 at 09:38; Status DC Glycopyrrolate 1 mg STK-MED ONCE .ROUTE Last administered on 08/13/24at 10:02; Start 08/13/24 at 10:01; Stop 08/13/24 at 10:01; Status DC Ketorolac Tromethamine 15 mg STK-MED ONCE .ROUTE; Start 08/13/24 at 10:11; Stop 08/13/24 at 10:11; Status DC SNOW FISHER NP August 14, 2024 08:02
[2024-08-14 08:05] VITALS: BP 143/69; PULSE 72; RESP 18; TEMP 98.3
[2024-08-14] MEDS: ASPIRIN 325MG EC TAB PO SCH (08:38)
--- NOTE | 2024-08-14 09:17 | NUR ---
[facility] Care Coordination Call Chart reviewed and case discussed during the [facility] Care [facility]ination Call. Per Yasmeen bruce/ the [facility] the [facility] request has been received and is pending. Anticipate auth today.
[2024-08-14 11:52] VITALS: BP 155/77; PULSE 73; RESP 18; TEMP 98.7
[2024-08-14] MEDS: HYDROcodone/APAP 5/325 1 TAB TABLET PO PRN (11:57)
[2024-08-14 16:28] VITALS: BP 159/74; PULSE 69; RESP 19; TEMP 98.7
[2024-08-14] MEDS ORDERED: GABA100C PO (17:54)
[2024-08-14] MEDS ORDERED: CYCL-309 PO (17:54)
[2024-08-14] MEDS ORDERED: DOCU-116 PO (17:54)
[2024-08-14] MEDS ORDERED: HYDR-4060 PO (17:54)
[2024-08-14] MEDS ORDERED: ASPI-891 PO (17:54)
--- NOTE | 2024-08-14 18:33 | NUR ---
REPORT CALLED TO [facility] RN, TRANG
[2024-08-16] MEDS ORDERED: BisaCODYL 10 MG SUPP.RECT RC PRN (07:30)
== END 2024-08-14 20:10 | disposition home health service (06) ==
LOC: DAH 05:43 → DAHIP 05:44 → 4AH 11:00
PROVIDERS: ADMIT Student in an Organized Health Care Education/Training Program; ATTEND Student in an Organized Health Care Education/Training Program
DX: M17.12 Unilateral primary osteoarthritis, left knee (principal); G89.18 Other acute postprocedural pain; M23.8X2 Other internal derangements of left knee; D62 Acute posthemorrhagic anemia; E87.5 Hyperkalemia; I10 Essential (primary) hypertension; E78.5 Hyperlipidemia, unspecified; I25.10 Atherosclerotic heart disease of native coronary artery without angina pectoris; Z79.82 Long term (current) use of aspirin; Z79.899 Other long term (current) drug therapy
CPT/HCPCS: 84134; 86140; 36415 ×2; 87641; 27447; 96376; 96365; 96366 ×2; 96375; 64447; 73560; 97161; 97116 ×3; 97530 ×3; 80048; 85027; G0378 ×32; A4663; J7120 ×2; J3010 ×2; J3490 ×7; J1100; J2003; J2250; J2704; J2405; J1885 ×4; J2710; J2795 ×3; J2371; J0690 ×3; C1713 ×2; C1776 ×2; A4649 ×2; A4930; A6255; A5120; A4215; A4223 ×2; A4222; A4221; A4216